=== PATIENT | male | born 1975 | race Caucasian/White ===

== ENCOUNTER 2018-11-10 19:10 | Emergency (ER) | payer BC ==
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
[2018-11-10 19:59] LABS: ABSOLUTE NEUTROPHIL COUNT 3.96; BASO % 1.1 % (0-6); EOS % 2.9 % (0-6); GRAN % 54.8 % (47-80); HEMATOCRIT 42.3 % (42.0-52.0); HEMOGLOBIN 14.5 gm/dl (14.0-18.0); LYMPH % 33.7 % (16-45); MEAN CELL VOLUME 87.8 fl (81-97); MEAN CORPUSCULAR HEMOGLOBIN 30.1 pg (27-33); MEAN CORPUSCULAR HGB CONC 34.3 g/dl (32-36); MEAN PLATELET VOLUME 9.1 fl (7.4-10.4); MONO % 7.5 % (0-9); PLATELET COUNT 301 K/uL (130-400); RED BLOOD COUNT 4.82 M/uL (4.40-5.70); RED CELL DISTRIBUTION WIDTH 13.4 % (11.5-14.5); WHITE BLOOD COUNT W/O DIFF 7.2 K/uL (4.2-12.2)
[2018-11-10 20:11] LABS: BLOOD UREA NITROGEN 16 mg/dL (6-20); EST GLOMERULAR FILTRATION RATE > 60 mL/min
[2018-11-10 20:12] LABS: TOTAL PROTEIN 6.8 g/dL (6.6-8.7)
[2018-11-10 20:14] LABS: GLUCOSE,RANDOM 101 mg/dL (74-109)
[2018-11-10 20:17] LABS: ALB/GLOB RATIO 1.7 (1.1-1.8); ALBUMIN 4.3 g/dL (4.0-5.0); ALKALINE PHOSPHATASE 52 U/L (40-129); ALT/SGPT 22 U/L (<41); AST/SGOT 15 U/L (10.0-50.0)
[2018-11-10] MEDS ORDERED: CEPHALEXIN 500 MG CAPSULE PO STA (20:27)
== END 2018-11-10 20:32 | disposition left against medical advice (07) ==
LOC: ER 19:10
DX: R60.0 Localized edema (principal); M79.662 Pain in left lower leg; Z86.718 Personal history of other venous thrombosis and embolism
CPT/HCPCS: 80053; 85025; 85379; 99283